=== PATIENT | male | born 1980 | race Caucasian/White ===

== ENCOUNTER 2018-12-17 20:07 | Emergency (ER) | payer SELFPAY ==
[~2018-12-17] VITALS: Ht 162.6 cm; Wt 84.1 kg
[~2018-12-17 20:07] MED LIST: CLEO150C OR; KLON0.5T OR; No Historical Meds; TRAZ50TA OR; ZOLO100T OR
[2018-12-17] MEDS ORDERED: AMOXICILLIN 500 MG CAP PO ONE (22:30)
[2018-12-17] MEDS ORDERED: AMOX500C PO (22:32)
[2018-12-17] MEDS ORDERED: PSEU1TAB3 PO (22:32)
[2018-12-17 22:49] VITALS: BP 138/87
== END 2018-12-17 22:50 | disposition home or self-care (01) ==
LOC: M ED 20:07
DX: H66.41 Suppurative otitis media, unspecified, right ear (principal); H65.02 Acute serous otitis media, left ear; H91.91 Unspecified hearing loss, right ear; Z88.2 Allergy status to sulfonamides